=== PATIENT | male | born 2000 | race Two or more races ===

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

== ENCOUNTER 2024-08-14 18:03 | Emergency (ER) | payer MEDICAID ==
[~2024-08-14] VITALS: Ht 175.3 cm; Wt 72.0 kg
--- NOTE | 2024-08-14 19:30 | DVH ---
CLINICAL INDICATION: LEFT ELBOW PAIN TECHNIQUE: 3 radiographic views of the left elbow were obtained. Comparison: None FINDINGS/IMPRESSION: Acute mildly displaced fracture of the distal radius diaphysis. No dislocation.
--- NOTE | 2024-08-14 19:32 | DVH ---
CLINICAL INDICATION: LEFT WRIST PAIN TECHNIQUE: 3 radiographic views of the left wrist were obtained. Comparison: None FINDINGS/IMPRESSION: There is acute full bone width dorsally displaced fracture of the distal radius diaphysis with about 13 mm bony overlap. There is associated soft tissue edema. There is slight widening of the distal radial ulnar joint.
--- NOTE | 2024-08-14 19:33 | DVH ---
CLINICAL INDICATION: LEFT FOREARM PAIN TECHNIQUE: 2 radiographic views of the left forearm were obtained. Comparison: None FINDINGS/IMPRESSION: There is acute fracture of the distal diaphysis of the radius with dorsal displacement of the distal fragment and about 13 mm bony overlap. There is associated soft tissue edema. There is slight widenin g of the distal radial ulnar joint.
[2024-08-14] MEDS ORDERED: ACE3T PO (20:37)
--- NOTE | 2024-08-14 20:38 | ED.PDOC ---
Musculoskeletal HPI Comments 23-year-old male presents to ER with complaints of left forearm pain x1 hour. Patient reports he tripped and fell and landed on his left forearm on cement 1 hour prior to arrival to ER while playing basketball and has since been experiencing pain/swelling to left mid forearm. Denies head injury/LOC. He rates his current pain an 8/10 to left mid forearm with radiation towards the left elbow and left wrist. Denies use of medications for current symptoms. Patient presents to ER ambulatory on arrival, with steady gait, in no distress. Denies left shoulder pain, numbness/tingling, left hand pain or any further symptoms/complaints Chief Complaint: Upper Extremity Time Seen by MD: 18:22 Primary Care Provider: MORALES Canales Notes: Nurses Notes, Medications, Allergies Allergies: Coded Allergies: NO KNOWN ALLERGIES (Unverified , 04/11/21) Home Meds Active Scripts Acetaminophen W/ Codeine (Tylenol W/Cod #3) 1 Tab Tb, 1 TAB PO Q6HP, #10 TAB 0 Refills Prov:KARLEE JULIAN 08/14/24 Information Source: Patient Mode of Arrival: Ambulatory Past Medical History PAST MEDICAL HISTORY: Denies Surgical History: Denies all surgeries Family History Family History: Reviewed,noncontributory to illness Social History Smoker: Non-Smoker Alcohol: Denies ETOH Use Drugs: Denies Drug Use Lives In: Home Constitutional: denies: chills, diaphoresis, fatigue, fever, malaise, sweats, weakness, others EENTM: denies: blurred vision, double vision, ear bleeding, ear discharge, ear drainage, ear pain, ear ringing, eye pain, eye redness, hearing loss, mouth pain, mouth swelling, nasal discharge, nose bleeding, nose congestion, nose pain, photophobia, tearing, throat pain, throat swelling, voice changes, others Respiratory: denies: cough, hemoptysis, orthopnea, SOB at rest, shortness of breath, SOB with excertion, stridor, wheezing, others Cardiovascular: denies: chest pain, dizzy spells, diaphoresis, Dyspnea on exertion, edema, irregular heart beat, left arm pain, lightheadedness, palpitations, PND, syncope, others Gastrointestinal: denies: abdomen distended, abdominal pain, blood streaked bowels, constipated, diarrhea, dysphagia, difficulty swallowing, hematemesis, melena, nausea, poor appetite, poor fluid intake, rectal bleeding, rectal pain, vomiting, others Genitourinary: denies: burning, dysuria, flank pain, frequency, hematuria, incontinence, penile discharge, penile sore, pain, testicle pain, testicle swelling, urgency, others Neurological: denies: dizziness, fainting, headache, left sided numbness, left sided weakness, numbness, paresthesia, pre-existing deficit, right sided numbness, right sided weakness, seizure, speech problems, tingling, tremors, weakness, others Musculoskeletal: reports: others (As stated in HPI) Integumetry: reports: others (As stated in HPI) Allergic/Immunocompromised: denies: Difficulty Healing, Frequent Infections, Hives, Itching, others Hematologic/Lymphatic: denies: anemia, blood clots, easy bleeding, easy bruising, swollen glands, others Endocrine: denies: excessive hunger, excessive sweating, excessive thirst, excessive urination, flushing, intolerance to cold, intolerance to heat, unexplained weight gain, unexplained weight loss, others Psychiatric: denies: anxiety, bipolar disorder, depression, hopeless, panic disorder, schizophrenia, sleepless, suicidal, others Physical Exam General Appearance: No Apparent Distress HEENT: PERRL/EOMI, TMs Normal Neck: Full Range of Motion, Non-Tender, Normal Respiratory: Chest Non-Tender, Lungs Clear, No Accessory Muscle Use, No Respiratory Distress, Normal Breath Sounds Cardiovascular: No Murmur, No Gallop, Regular Rate/Rhythm Breast Exam: Deferred Gastrointestinal: NOT DONE Genitalia: Deferred Pelvic: Deferred Rectal: Deferred Extremities: Normal capillary refill, Normal range of motion Musculoskeletal : Extremity Location: Forearm (TTP/moderate swelling noted to distal diaphysis of left radius and slight TTP to left elbow/left wrist noted. No other TTP to left upper extermity noted. Patient able to move left elbow/left wrist without difficulty. No TTP to left anatomical snuffbox noted. Pulses intact) Neurologic: Alert, No Motor Deficits, Normal Affect, Normal Mood, No Sensory Deficits Cerebellar Function: Normal Reflexes: Normal Skin: Dry, Normal Color, Warm Peripheral Pulses: 2+ Radial (R), 2+ Radial (L), 2+ Brachial (R), 2+ Brachial (L) Lymphatic: No Adenopathy Was a procedure done? Was a procedure done?: No Sedation Sedation?: No Differential Diagnosis EXT Differential Diagnosis: Dislocation, Laceration, Neurovascular injury X-Ray, Labs, Meds, VS Vital Signs Date Time Temp Pulse Resp B/P (MAP) Pulse Ox O2 Delivery O2 Flow Rate FiO2 08/14/24 20:58 63 18 97 Room Air 08/14/24 20:45 99.1 63 18 127/85 (99) 97 99.1 08/14/24 18:21 98.5 74 18 102/59 (73) 100 PATIENT: SACHIN MO RACCT: [id number]: [id number] : 2000 LOC: ER ROOM / BED: / AGE / SEX: 23 / M ADM STATUS: REG ER SERVICE 43 ORDERING PHYSICIAN: KARLEE JULIAN PROCEDURE(s): LFOR - L FOREARM XRAY REASON: LEFT FOREARM PAIN ORDER NUMBER(s): [id number], ACCESSION NUMBER(s): [id number] CLINICAL INDICATION: LEFT FOREARM PAIN TECHNIQUE: 2 radiographic views of the left forearm were obtained. Comparison: None FINDINGS/IMPRESSION: There is acute fracture of the distal diaphysis of the radius with dorsal displacement of the distal fragment and about 13 mm bony overlap. There is ass ociated soft tissue edema. There is slight widening of the distal radial ulnar joint. ATED BY: DANILELE BUCK DO DICTATED DATE/TIME: 08/14/241930 SIGNED BY: DANIELLE BUCK DO SIGNED DATE/TIME: 08/14/241930 CC: PATIENT: SACHIN MO RACCT: [id number] UNIT: [id number] : 2000 LOC: ER ROOM / BED: / AGE / SEX: 23 / M ADM STATUS: REG ER SERVICE 43 ORDERING PHYSICIAN: KARLEE JULIAN PROCEDURE(s): LWRI - L WRIST 3+ VIEW XRAY REASON: LEFT WRIST PAIN ORDER NUMBER(s): [id number], ACCESSION NUMBER(s): [id number] CLINICAL INDICATION: LEFT WRIST PAIN TECHNIQUE: 3 radiographic views of the left wrist were obtained. Comparison: None FINDINGS/IMPRESSION: There is acute full bone width dorsally displaced fracture of the distal radius diaphysis with about 13 mm bony overlap. There is associated soft tissue edema. There is slight widening of the distal radial ulnar joint. ATED BY: DANIELLE BUCK DO DICTATED DATE/TIME: 08/14/241929 SIGNED BY: DANIELLE BUCK DO SIGNED DATE/TIME: 08/14/241929 CC: PATIENT: SACHIN MO RACCT: [id number] UNIT: [id number] : 2000 LOC: ER ROOM / BED: / AGE / SEX: 23 / M ADM STATUS: REG ER SERVICE 43 ORDERING PHYSICIAN: KARLEE JULIAN PROCEDURE(s): LELB3 - L ELBOW 3 VIEW XRAY REASON: LEFT ELBOW PAIN ORDER NUMBER(s): [id number], ACCESSION NUMBER(s): [id number] CLINICAL INDICATION: LEFT ELBOW PAIN TECHNIQUE: 3 radiographic views of the left elbow were obtained. Comparison: None FINDINGS/IMPRESSION: Acute mildly displaced fracture of the distal radius diaphysis. No dislocation. ATED BY: DANIELLE BUCK DO DICTATED DATE/TIME: 08/14/241927 SIGNED BY: DANIELLE BUCK DO SIGNED DATE/TIME: 08/14/241927 CC: Left forearm/left elbow and left wrist x-ray reviewed Left sugar-tong splint applied Left arm sling applied Toradol 60 mg IM ordered Patient neurovascularly intact and in no distress during ER visit/prior to discharge Advised on rest/no strenuous activity, elevation and alternate ice on/off as needed for pain/swelling Case, physical exam findings and left forearm x-ray imaging/left forearm imaging report reviewed and discussed with orthopedic Dr. Rankin. Dr. Rankin states he can f/u with patient in clinic tomorrow to book for surgery Patient provided information to Dr. [facility] and advised on strict f/u tomorrow Patient provided copies of x-ray imaging reports prior to discharge Advised to f/u with PCP in 1-2 days Patient verbalized understanding and agreeable with current plan of care Advised to return to ER immediately if symptoms worsen Images Reviewed?: Images reviewed and evaluated by me Time of 1ST Reevaluation: 20:44 Reevaluation 1ST: N/A Patient Education/Counseling: Diagnosis, Treatment, Prognosis, Need For Follow Up Family Education/Counseling: No Family Present Departure 1 Departure Time of Disposition: 20:32 Impression: Primary Impression: Distal radius fracture Qualified Codes: S52.502A - Unspecified fracture of the lower end of left radius, initial encounter for closed fracture Disposition: 01 HOME / SELF CARE / HOMELESS Condition: Stable e-Prescriptions Acetaminophen W/ Codeine (Tylenol W/Cod #3) 1 Tab Tb 1 TAB PO Q6HP, #10 TAB 0 Refills Prov: KARLEE JULIAN 08/14/24 Discharged With: Friend Critical Care Note Critical Care Time?: No Stability Stability form required: No Heart Score Heart Score: Heart Score Response (Comments) Value History N/A 0 EKG N/A 0 Age N/A 0 Risk Factors N/A 0 Troponin N/A 0 Total 0 KARLEE JULIAN Aug 14, 2024 20:38
[2024-08-14 20:45] VITALS: BP 127/85; TEMP 99.1
[2024-08-14 20:58] VITALS: PULSE 63; RESP 18; O2SAT 97
[2024-08-14] MEDS: KETOROLAC TROMETH 60MG/2ML VIAL IM ONE (21:11)
== END 2024-08-14 21:30 | disposition home or self-care (01) ==
LOC: ER 18:05
DX: S52.502A Unspecified fracture of the lower end of left radius, initial encounter for closed fracture (principal); S52.302A Unspecified fracture of shaft of left radius, initial encounter for closed fracture; Z79.899 Other long term (current) drug therapy; W01.0XXA Fall on same level from slipping, tripping and stumbling without subsequent striking against object, initial encounter; Y93.67 Activity, basketball; Y92.89 Other specified places as the place of occurrence of the external cause; Y99.8 Other external cause status
CPT/HCPCS: 29125; 73080; 73090; 73110; 96372; 99284; J1885